=== PATIENT | male | born 1995 | race Caucasian/White ===

== ENCOUNTER 2017-08-09 20:13 | Emergency (ER) | payer MEDICAID ==
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
== END 2017-08-09 23:40 | disposition home or self-care (01) ==
LOC: ER 20:13
DX: R22.33 Localized swelling, mass and lump, upper limb, bilateral (principal)
CPT/HCPCS: 73130-TC-LT; 73130-TC-RT; Z7502